=== PATIENT | female | born 1995 | race Caucasian/White ===

== ENCOUNTER 2018-08-10 18:54 | Emergency (ER) | payer OTHER ==
[2018-08-10] MEDS ORDERED: AMOXICILLIN/CLAVULANATE POT 875/125 MG TAB PO ONE (21:53)
--- NOTE | 2018-08-10 21:53 | EDPHY ---
General Time Seen by Provider: 08/10/18 21:29 Narrative: CHIEF COMPLAINT: Dog bite HISTORY OF PRESENT ILLNESS: Patient presents with complaints of dog bites. She says that her roommate's dog "snapped on us" and tried to attack earlier this evening. She was bitten in the right posterior forearm, left breast and suprapubic skin. These are minimally painful. She states that the wounds are small because her other roommate helped her and sustained worse wounds. She has minimal pain with movement. No nausea or vomiting. No abdominal pain. Tetanus is up-to-date. No other associated complaints or modifying factors. TIME OF INJURY: Less than 2 hr prior to arrival TETANUS STATUS: Less than 7 years ago MEDICAL/SURGICAL/SOCIAL HISTORY: Uncomplicated. Nonsmoker REVIEW OF SYSTEMS: Ten systems reviewed and are negative unless otherwise noted in the HPI EXAMINATION General Appearance: Alert, no distress Head: normocephalic, atraumatic Cardiovascular: Pulses normal throughout. Brisk cap refill Neurological: A&O, sensory symmetric, strength symmetric Skin: Warm and dry, no rash. There is a puncture to the right posterior forearm, left breast and to the suprapubic skin. The left breast is a tissue avulsion. The right posterior forearm is a puncture wound. There is no foreign body. No pulsatile bleeding. 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 Extremities: Minimal tenderness of the right posterior forearm puncture wound. Range of motion is fully intact with soft compartments. No evidence of compartment syndrome DVT. DIFFERENTIAL DIAGNOSES: Including but not limited to dog bite to forearm, dog bite the breast, dog bite to suprapubic skin MDM: 9:40 p.m. Dog bite to right posterior forearm, suprapubic region, left lateral breast. These are mostly superficial wounds of the puncture on the right posterior forearm. The wounds are currently being irrigated. Tetanus up-to-date. First dose of Augmentin given here. No signs of infection or arterial bleed. 10:14 p.m. Wounds have been irrigated and I have re-evaluated. The right forearm laceration does not require suture repair. The left breast wound is an avulsion wound, thus suture is not indicated. The mons pubis injuries are non suture repairable. We discussed daily wound care. We discussed Augmentin, she was given 1st dose here. We discussed ED precautions for fever, nausea, vomiting, difficulty using the extremity, abdominal pain or chest pain. We discussed following up with animal control for definitive care. There is no indication for rabies post exposure prophylaxis as the dog is in containment and is reportedly up-to-date on vaccinations. She is well-appearing. She is in no pain. Discharged home stable condition. SUPERVISION: This patient was independently evaluated without direct involvement of or examination by the attending physician. ED Precautions: Worsening pain. Erythema, edema, cyanosis, pallor, paresthesia or anesthesia. - History Smoking Status: Never smoked - Objective Vital Signs: Initial Vital Signs Temperature (C) 98.6 F 08/10/18 19:05 Heart Rate 108 H 08/10/18 19:05 Respiratory Rate 18 08/10/18 19:05 Blood Pressure 151/92 H 08/10/18 19:05 O2 Sat (%) 96 08/10/18 19:05 O2 Delivery Mode Room Air Allergies/Adverse Reactions: No Known Allergies Allergy (Unverified 08/10/18 19:06) Home Medications: Medication Instructions Recorded Amoxicillin/Clavulanate Pot 875 mg PO BID #20 tab 08/10/18 [Augmentin 875 MG TAB (*)] Norethindrone 08/10/18 Medications Given: Discontinued Medications Amoxicillin/Clavulanate Potassium (Augmentin 875mg) 875 mg PO EDNOW ONE PRN Reason: Protocol Stop: 08/10/18 21:54 Last Admin: 08/10/18 22:31 Dose: 875 mg Departure - Departure Disposition: Home, Routine, Self-Care Clinical Impression: Dog bite of right upper extremity Qualifiers: Encounter type: initial encounter Qualified Code(s): S41.151A - Open bite of right upper arm, initial encounter Dog bite Qualifiers: Encounter type: initial encounter Qualified Code(s): W54.0XXA - Bitten by dog, initial encounter Condition: Good Instructions: Amoxicillin/Clavulanate Potassium (By mouth), Animal Bite (ED) Additional Instructions: 1. Daily wound care as discussed 2. Augmentin as prescribed to completion 3. Contact primary care physician as provided 4. ED precautions as discussed Referrals: IVORY NARAYAN [Other] - As per Instructions Jennifer Banuelos MD [[facility] [place] Primary Care Provider] - As per Instructions Prescriptions: Amoxicillin/Clavulanate Pot [Augmentin 875 MG TAB (*)] 875 mg PO BID #20 tab
[2018-08-10 22:35] VITALS: BP 145/78
== END 2018-08-10 22:35 | disposition home or self-care (01) ==
DX: S41.151A Open bite of right upper arm, initial encounter (principal); W54.0XXA Bitten by dog, initial encounter; Y92.9 Unspecified place or not applicable